=== PATIENT | female | born 1975 | race Caucasian/White ===

== ENCOUNTER → 2019-01-08 | Outpatient (CLI) | payer BC ==
[2019-01-08 11:11] LABS: Basophils % (A) 0 %; Eosinophils # (A) 0.1 k/uL (0-0.7); Eosinophils % (A) 1 %; HCT 47.6 % (34.0-46.0); Lymphocytes # (A) 2.7 k/uL (1.0-4.8); Lymphocytes % (A) 26 %; MCH 30.4 pg (25.0-35.0); MCHC 31.4 g/dL (31.0-37.0); Mean Platelet Volume 7.4; Monocytes # (A) 0.4 k/uL (0-1.0); Monocytes % (A) 4 %; Neutrophils # (A) 7.2 k/uL (1.3-7.7); Neutrophils % (A) 68 %; Platelet Count 398 k/uL (150-450); RBC 4.91 m/uL (3.80-5.40); RDW 13.4 % (11.5-15.5); WBC 10.5 k/uL (3.8-10.6)
== END | disposition home or self-care (01) ==
LOC: LABPAT 10:14
PROVIDERS: ATTEND Obstetrics & Gynecology
DX: Z01.812 Encounter for preprocedural laboratory examination (principal); N93.8 Other specified abnormal uterine and vaginal bleeding
CPT/HCPCS: 36415; 85025

== ENCOUNTER 2019-01-20 06:09 | Day surgery (SDC) | payer BC ==
[2019-01-12 14:29] VITALS: BMI 25.2
[~2019-01-20 06:09] MED LIST: DEXAMETHASONE SOD PHOSPHATE 10 MG/ML 1 ML VIAL IV ONE; HYDROmorphone 0.5 MG/0.5 ML SYRINGE IVP PRN; LACTATED RINGERS 1,000 ML IV SCH; LIDOCAINE 1% 20 ML VIAL (10MG/ML) FOR IV START INTRADERMA PRN; MIDAZOLAM 2 MG/2 ML VIAL IV PRN; ONDANSETRON 4 MG/2 ML VIAL IVP ONE; Pre Op ABX Message 1 EACH MISC MISCELLANE ONE; SCOPOLAMINE 1.5MG/72HR PATCH TRANSDERM ONE
[2019-01-20] MEDS: LACTATED RINGERS 1,000 ML IV ONE (06:27)
[2019-01-20] MEDS ORDERED: LACTATED RINGERS 1,000 ML IV ONE ×2 (06:27→08:33)
[2019-01-20] MEDS ORDERED: PROPOFOL 10 MG/ML 20 ML VIAL IV ONE (07:24)
[2019-01-20] MEDS ORDERED: MIDAZOLAM 2 MG/2 ML VIAL ONE (07:24)
[2019-01-20] MEDS ORDERED: KETOROLAC 30 MG/ML 1 ML VIAL ONE (07:24)
[2019-01-20] MEDS ORDERED: LIDOCAINE 1% INJ 10MG/ML (20 ML MDV) ONE (07:24)
[2019-01-20] MEDS ORDERED: fentaNYL (PF) 50 MCG/ML 2 ML AMP ONE (07:24)
[2019-01-20] MEDS ORDERED: LIDOCAINE 1%-EPI 1:100,000 20 ML VIAL SUBMUCOSAL ONE (07:46)
[2019-01-20 08:12] VITALS: TEMP 96.8
--- NOTE | 2019-01-20 08:21 | P.OP ---
Date of Procedure: 01/20/19 Preoperative Diagnosis: Dysfunctional uterine bleeding Postoperative Diagnosis: Dysfunctional uterine bleeding Procedure(s) Performed: Diagnostic hysteroscopy with NovaSure endometrial ablation Anesthesia: DORIS Surgeon: Sharee Canada Estimated Blood Loss (ml): 0 IV fluids (ml): 400 Urine output (ml): 25 Pathology: none sent Condition: stable Disposition: PACU Operative Findings: Fluffy endometrium with no obvious intracavitary lesions Description of Procedure: After the patient was met in the preoperative holding area and all questions were answered, she was taken to the operating room where anesthetic was administered without incident. She was in positioned, prepped and draped in the dorsal lithotomy position. Appropriate timeout procedure was undertaken. Single-sided speculum was placed in the vagina after the bladder was drained for approximately 25 mL of clear urine. Cervix was grasped anteriorly with a single-tooth tenaculum and paracervical block with lidocaine plus epinephrine was placed. The uterus was sounded to 8 cm. The cervix was then sequentially dilated with Hegar dilators to allow for passage of the diagnostic hysteroscope. The hysteroscope was introduced and the above findings were noted. The hysteroscope was removed and the cervix was further dilated to allow for passage of the NovaSure ablation tool. The instrument was introduced with a cavity length of 4.5 cm and a width of 4.3 cm. The device was enabled and cavity assessment test was passed. Treatment cycle was 85 seconds with a power of 106 W. Following cessation of the treatment cycle the device was removed and the hysteroscope was reintroduced. Complete desiccation of the endometrium was appreciated. Hysteroscope was removed. Tenaculum was removed and the cervix was observed. No active bleeding was noted. Speculum was removed and the patient was awoken from anesthetic without incident. She was transported to recovery area in stable condition. All counts reported to me as correct by the operating room staff.
[2019-01-20 09:06] VITALS: RESP 18
[2019-01-20] MEDS ORDERED: IBUPROFEN 200 MG TAB PO ONE (09:10)
[2019-01-20 09:45] VITALS: BP 109/72; PULSE 88
== END 2019-01-20 09:58 | disposition home or self-care (01) ==
LOC: OR 06:09
PROVIDERS: ATTEND Obstetrics & Gynecology
DX: N93.8 Other specified abnormal uterine and vaginal bleeding (principal); F17.210 Nicotine dependence, cigarettes, uncomplicated
CPT/HCPCS: 81025; 58563; J2250; J1100; J2405; J2001; J3010; J1885; J2704